=== PATIENT | female | born 2000 | race Caucasian/White ===

== ENCOUNTER 2022-10-06 21:51 | Emergency (ER) | payer OTHER ==
[2022-10-06] MEDS: ONDANSETRON ODT 4 MG TABLET TL STA ×2 (22:42→23:38)
[2022-10-06 22:52] LABS: BASOPHILS # (AUTO) 0.1 10^3/uL (0.0-0.1); BASOPHILS % (AUTO) 0.6 %; EOSINOPHILS # (AUTO) 0.1 10^3/uL (0.0-0.7); EOSINOPHILS % (AUTO) 0.9 %; HCT - HEMATOCRIT 40.2 % (37.0-47.0); HGB - HEMOGLOBIN 13.1 g/dL (12.0-16.0); LYMPHOCYTES # (AUTO) 2.5 10^3/uL (1.5-3.5); LYMPHOCYTES % (AUTO) 25.6 %; MEAN CORPUSCULAR HEMOGLOBIN 28.6 pg (27.0-31.0); MEAN CORPUSCULAR HGB CONC 32.6 g/dL (32.0-36.0); MEAN CORPUSCULAR VOLUME 87.8 fL (81.0-99.0); MEAN PLATELET VOLUME 11.1 fL (7.9-10.8); MONOCYTES # (AUTO) 0.7 10^3/uL (0.0-1.0); MONOCYTES % (AUTO) 7.4 %; NEUTROPHILS # (AUTO) 6.3 10^3/uL (1.5-6.6); NEUTROPHILS % (AUTO) 65.2 %; PLT - PLATELET COUNT 205 10^3/uL (130-450); RED BLOOD COUNT 4.58 10^6/uL (4.20-5.40); RED CELL DISTRIBUTION WIDTH 13.6 % (12.0-15.0); WHITE BLOOD COUNT 9.7 x10^3/uL (4.8-10.8)
[2022-10-06 23:04] LABS: ALBUMIN 4.7 g/dL (3.2-5.5); ALBUMIN/GLOBULIN RATIO 1.6 (1.0-2.2); BILIRUBIN,TOTAL 0.4 mg/dL (0.2-1.0); CALCIUM 9.2 mg/dL (8.5-10.3); CREATININE 0.7 mg/dL (0.4-1.0); POTASSIUM 4.1 mmol/L (3.5-5.0); TOTAL PROTEIN 7.6 g/dL (6.7-8.2)
[2022-10-06] MEDS ORDERED: AMOX/CLAV 875 MG/125 MG TABLET PO STA (23:10)
--- NOTE | 2022-10-06 23:13 | ED Physician Documentation ---
PD HPI NVD - Stated complaint Stated Complaint: VOMIT/BLOOD/EAR PX - Chief complaint Chief Complaint: Abd Pain - History obtained from History obtained from: Patient, Friend - History of Present Illness Timing - onset: Today Timing - details: Gradual onset, Waxing and waning Associated symptoms: Abdominal pain, Other (right ear pain, cough with phlem) Contributing factors: Other (has develped phlem from "ear infection"). No: Sick contact, Bad food, Recent antibiotics, Alcohol use Improved by: Vomiting Similar symptoms before: No diagnosis Recently seen: Not recently seen - Additonal information Additional information: Afshan Crawford is a 22-year-old female who has sensitivity issues and she has recently developed some phlegm that she is coughing and with this she has developed some vomiting when she vomited something that was red she was concerned about bleeding and she is come to the emergency department for evaluation. She has had some issue with abdominal cramping as well. She has had issue with her stomach for quite some time and she has previously been on omeprazole. She has a family history of ulcer. She denies current use of ibuprofen or alcohol. She is on a wait list to see the psychology associate about her stomach issues. Review of Systems Constitutional: denies: Fever Eyes: denies: Decreased vision Ears: reports: Ear pain Nose: reports: Rhinorrhea / runny nose, Congestion Throat: reports: Sore throat Cardiac: denies: Chest pain / pressure, Palpitations Respiratory: reports: Cough. denies: Dyspnea GI: reports: Nausea, Vomiting : denies: Dysuria, Frequency PD PAST MEDICAL HISTORY - Present Medications Home Medications: Ambulatory Orders Medication Instructions Recorded Confirmed Amox/Clav 875/125 [Augmentin] 1 each PO Q12H #20 tablet 10/06/22 Ondansetron Odt [Zofran] 4 mg TL Q6H PRN #10 tablet 10/06/22 - Allergies Allergies/Adverse Reactions: Allergies Allergy/AdvReac Type Severity Reaction Status Date / Time No Known Drug Allergies Allergy Verified 10/06/22 22:36 PD ED PE NORMAL - Vitals Vital signs reviewed: Yes (Normal) - General General: Alert and oriented X 3, No acute distress, Well developed/nourished - HEENT HEENT: Atraumatic, PERRL, EOMI, Pharynx benign, Other (The right TM is obscured by cerumen this is removed to reveal an erythematous TM with indistinct landmarks the left is clear) - Neck Neck: Supple, no meningeal sign, No bony TTP - Cardiac Cardiac: RRR, No murmur - Respiratory Respiratory: No respiratory distress, Clear bilaterally - Abdomen Abdomen: Normal bowel sounds, Soft, Non tender, Non distended, No organomegaly - Back Back: No CVA TTP, No spinal TTP - Derm Derm: Normal color, Warm and dry, No rash - Extremities Extremities: No deformity, No edema - Neuro Neuro: Alert and oriented X 3, language pathologist 2-12 intact, No motor deficit, No sensory deficit, Normal speech Eye Opening: Spontaneous Motor: Obeys Commands Verbal: Oriented GCS Score: 15 - Psych Psych: Normal mood, Normal affect Results - Vitals Vitals: Vital Signs - 24 hr 10/06/22 21:56 Temperature 36.7 C Heart Rate 65 Respiratory 16 Rate Blood Pressure 125/63 O2 Saturation 99 Oxygen O2 Source Room air - Labs Labs: Laboratory Tests 10/06/22 10/06/22 22:47 22:47 WBC 9.7 RBC 4.58 Hgb 13.1 Hct 40.2 MCV 87.8 MCH 28.6 MCHC 32.6 RDW 13.6 Plt Count 205 MPV 11.1 H Neut # (Auto) 6.3 Lymph # (Auto) 2.5 Gates # (Auto) 0.7 Eos # (Auto) 0.1 Baso # (Auto) 0.1 Absolute Nucleated RBC 0.00 Nucleated RBC % 0.0 Sodium 139 Potassium 4.1 Chloride 106 Carbon Dioxide 25 Anion Gap 8.0 BUN 18 Creatinine 0.7 Estimated GFR (MDRD) 107 Glucose 103 H Calcium 9.2 Total Bilirubin 0.4 AST 19 ALT 15 Alkaline Phosphatase 41 L Total Protein 7.6 Albumin 4.7 Globulin 2.9 Albumin/Globulin Ratio 1.6 Lipase 34 PD Medical Decision Making - ED course Complexity details: reviewed results, re-evaluated patient, considered differential, d/w patient, d/w family Reviewed Lab Results: We reviewed a complete blood count showing a normal white blood cell count nor mal hemoglobin hematocrit and platelets with normal indices. Chemistries were similarly unremarkable. Normal electrolytes normal kidney and liver function. BUN was 18. These benign laboratory results indicate a benign process. I do not see evidence of excessive blood loss the patient does not have elevation in her BUN to suggest she is digesting blood and she has normal blood counts she has not had any vomiting in the department and she has had stable vital signs. ED course: 22-year-old female presents to the emergency department with vomiting with concerns that she may have vomited blood. She has concerns that she may have an ulcer. She is complaining of some stomach pain and some ear pain and a cough. She states that she has some sensitivities and when she has phlegm she will frequent vomit. On examination today we found she had cerumen impaction in the right ear canal and I personally placed oil retention enema into the patient's ear and irrigated her ear with warm saline relieving the cerumen impaction and revealing evidence of otitis. She indicates to me that she has had a problem with frequent infections and we have elected to treat today. She is treated with Augmentin 875. I have recommended the patient that she take some Pepcid AC instead of omeprazole and to take this on a regular basis until her follow-up with GI. We will also provide the patient with some Zofran. Departure - Departure Disposition: 01 Home, Self Care Clinical Impression: Vomiting Qualifiers: Vomiting type: unspecified Nausea presence: with nausea Qualified Code(s): R11.2 - Nausea with vomiting, unspecified Otitis media Qualifiers: Otitis media type: suppurative Chronicity: acute Laterality: right Recurrence: recurrent Spontaneous tympanic membrane rupture: without spontaneous rupture Qualified Code(s): H66.004 - Acute suppurative otitis media without spontaneous rupture of ear drum, recurrent, right ear Condition: Stable Instructions: ED Otitis Media Acute Adult, ED Diet Vomiting Diarrhea Follow-Up: [facility] [Provider Group] Prescriptions: Amox/Clav 875/125 [Augmentin] 1 each PO Q12H #20 tablet Ondansetron Odt [Zofran] 4 mg TL Q6H PRN #10 tablet PRN Reason: Nausea / Vomiting Comments: Elizabeth, today it looks like the phlegm that you are producing from your cough is related to an ear infection and we are treating that with Augmentin. It also looks like this phlegm is causing some irritation to your stomach and causing nausea and vomiting. I have E scribed some Zofran to the [facility] along with your Augmentin. My recommendation for your stomach is to take some Pepcid AC on a regular basis until your follow-up with GI. Today we did not find evidence of blood loss.
[2022-10-06] MEDS ORDERED: ONDANSETRON ODT 4 MG Prepack 2 TL PRN (23:26)
[2022-10-06 23:28] VITALS: BP 115/78
== END 2022-10-06 23:41 | disposition home or self-care (01) ==
LOC: ED 21:51
DX: H66.004 Acute suppurative otitis media without spontaneous rupture of ear drum, recurrent, right ear (principal); R11.2 Nausea with vomiting, unspecified; H61.21 Impacted cerumen, right ear
CPT/HCPCS: 36415; 80053; 83690; 85025; 99283; 99284; A9270; Q0162

== ENCOUNTER 2022-11-14 19:50 | Emergency (ER) | payer OTHER ==
[2022-11-14 20:09] VITALS: BP 140/90
--- NOTE | 2022-11-14 20:36 | ED Physician Documentation ---
PD HPI LOWER EXT INJURY - Stated complaint Stated Complaint: R KNEE/HIP PX - Chief complaint Chief Complaint: Ext Problem - History obtained from History obtained from: Patient - Additional information Additional information: HPI from patient. Patient complains of sudden onset of right hip pain that radiates to her right knee. The pain started at approximately noon today when she went to stand up f rom a seated position.The pain is distinctly worse with movement. She has had previous and episodic right hip pain in the past related to position and movement but never this persistent nor severe; has not been evaluated in the past for these symptoms. She is able to partially weight-bear but is using a cane this evening to decrease weight-bearing on the RLE. Denies fever, swelling. Review of Systems Constitutional: reports: Reviewed and negative Musculoskeletal: reports: Joint pain, Pain with weight bearing. denies: Back pain, Extremity swelling, Joint swelling Neurologic: denies: Focal weakness, Numbness PD PAST MEDICAL HISTORY - Past Medical History Past Medical History: No - Present Medications Home Medications: Ambulatory Orders Medication Instructions Recorded Confirmed Amox/Clav 875/125 [Augmentin] 1 each PO Q12H #20 tablet 10/06/22 Ondansetron Odt [Zofran] 4 mg TL Q6H PRN #10 tablet 10/06/22 traMADol [Ultram] 50 - 100 mg PO Q6H PRN #20 tablet 11/14/22 - Allergies Allergies/Adverse Reactions: Allergies Allergy/AdvReac Type Severity Reaction Status Date / Time No Known Drug Allergies Allergy Verified 11/14/22 20:04 PD ED PE NORMAL - Vitals Vital signs reviewed: Yes - General General: Alert and oriented X 3, No acute distress, Well developed/nourished - Back Back: No CVA TTP, No spinal TTP - Derm Derm: Normal color, Warm and dry - Extremities Extremities: No deformity, No tenderness to palpate, No edema - Neuro Neuro: No motor deficit, No sensory deficit PD ED PE EXPANDED - Extremities Extremities: Limited ROM, Right hip, Right knee Results - Vitals Vitals: Oxygen O2 Source Room air - Rads (name of study) right knee xrays Relevant Findings:: Prelim report reviewed, See rad report right hip xrays Relevant Findings:: Prelim report reviewed, See rad report PD Medical Decision Making - ED course Complexity details: reviewed results, re-evaluated patient, considered differential, d/w patient ED course: Limited ROM of right hip and right knee (limited flexion of knee, extension of hip) due to pain. No bony tenderness and no swelling of the knee on my exam as well as per patient (I specifically ask her if she appreciates any knee swelling given the xray findings); lack of swelling on exam is surprising given the xray interpretation of moderate effusion (per radiology). That she reports recurrent joint pains , particularly (though not limited to) of the right hip, combined with the xray findings, raises concern for possible underlying/predisposing pathology which (as noted in radiologists readings of the xrays) might benefit from further study such as MRI. Patient indicates to me that she already was planning on talking to her doctor about her recurrent joint pains which have been occurring with minimal provocation. Results d/w patient. Analgesia discussed; she indicates she has had inadequate relief with ibuprofen taken earlier this evening. Options for analgesia d/w patient, given tramadol in ED and rx for same. Return precautions discussed. I am prescribing a short course of short-acting opioid pain medication for this patient. I have reviewed the patients [employer]AGE [employer]ACHINE and no concerning findings were noted. I have discussed that the opioids are for short term therapy only, and will not be refilled from the ED. Departure - Departure Disposition: 01 Home, Self Care Clinical Impression: Lower extremity pain, right Condition: Good Instructions: ED Sprain Hip, ED Effusion Knee, ED Sprain Knee Follow-Up: HOPE ROBISON MD [Primary Care Provider] - Prescriptions: traMADol [Ultram] 50 - 100 mg PO Q6H PRN #20 tablet PRN Reason: Pain >8 Comments: There were mild abnormalities noted on the x-ray; these abnormalities would not explain your acute pain, but might be contributory factor. Specifically, the right hip joint space is noticeably narrow. Additionally, there is a moderate amount of fluid in the right knee. Follow up with your primary care provider, next available appointment. Further testing, such as MRI, might be helpful (at the discretion of your doctor). I have submitted a prescription for tramadol (mild narcotic/opiate pain medication) to the [facility] pharmacy in [place]. I am prescribing a short course of narcotic pain medication for you. These are potentially dangerous and addictive medications that should be used carefully. These medications may constipate you. Take an qjrc-oob-tptmdjq stool softener (docusate) twice daily with plenty of water while taking these medications. If you go 24 hours without a bowel movement, take podr-vve-vsvneue miralax, per package instructions. Do not drink or drive while taking these medications. If you received narcotic or sedating medications while in the emergency department, do not drive for 24 hours. Store this medication in a safe, secure place and out of reach of children. It is a violation of federal law to give or sell this medication to another person or to use in a manner other than prescribed. The ED will not refill narcotic prescriptions, including prescriptions lost or stolen. To dispose of unwanted medications: 1. [facility] at [address] in [place] has a medication drop box. They accept prescription medications (in pill form) Thursday through Thursday 9:00 a.m. to 5:00 p.m. 2. The [facility] accepts prescription medications (in pill form only) for disposal year round. Call for more information. 3. Contact the [facility] for the next [facility] sponsored prescription drug collection event. , [phone], or [phone]; I am prescribing a short course of narcotic pain medication for you. These are potentially dangerous and addictive medications that should be used carefully. These medications may constipate you. Take an enzd-zfe-gtqzgdo stool softener (docusate) twice daily with plenty of water while taking these medications. If you go 24 hours without a bowel movement, take mkxq-clo-cxnzkay miralax, per package instructions. Do not drink or drive while taking these medications. If you received narcotic or sedating medications while in the emergency department, do not drive for 24 hours. Store this medication in a safe, secure place and out of reach of children. It is a violation of federal law to give or sell this medication to another person or to use in a manner other than prescribed. The ED will not refill narcotic prescriptions, including prescriptions lost or stolen. To dispose of unwanted medications: 1. [facility] at [address] in [place] has a medication drop box. They accept prescription medications (in pill form) Thursday through Thursday 9:00 a.m. to 5:00 p.m. 2. The [facility] accepts prescription medications (in pill form only) for disposal year round. Call for more information. 3. Contact the [facility] for the next [facility] sponsored prescription drug collection event. , [phone], or [phone]; Forms: PCP List Discharge Date/Time: 11/14/22 21:14
--- NOTE | 2022-11-14 20:45 | XRAY Report ---
PROCEDURE: Knee 4 View RT INDICATIONS: Trauma TECHNIQUE: 4 views of the right knee(s) were acquired. COMPARISON: Correlation is made with the accompanying hip plain films FINDINGS: Bones: No fractures or dislocations. No suspicious bony lesions. Soft tissues: There is a moderate knee joint effusion. No suspicious soft tissue calcifications or m asses. IMPRESSION: Moderate joint effusion, without a eugene acute bony abnormality on these images. If it would be helpful for clinical management decision making, please consider a dedicated, schedule d knee MRI for further evaluation (assuming that there is no contraindication). Reviewed by: Domingo Russell MD on 11/14/2022 7:43 PM DANIELLE Approved by: Domingo Russell MD on 11/14/2022 7:43 PM DANIELLE Station ID: [id number]
--- NOTE | 2022-11-14 20:46 | XRAY Report ---
PROCEDURE: Hip w/Pelvis 2-3V RT INDICATIONS: Trauma, pain, please evaluate for fracture TECHNIQUE: AP pelvis with lateral view(s) of the right hip(s). COMPARISON: Correlation is made with the accompanying knee plain films. FINDINGS: Bones: No fractures or dislocations. No suspicious bony lesions. Mild bilateral hip joint space narrowing can be seen, right worse than left. Soft tissues: No suspicious soft tissue calcifications or masses. IMPRESSION: No eugene acute bony abnormality is seen. Bilateral joint space narrowing can be seen, right worse than left. If it would be helpful for clinical management decision making, please consider a dedicated hip MRI f or further evaluation (assuming that there is no contraindication). This should be performed accordi ng to the arthrogram protocol, if there is strong clinical concern for a labral abnormality. Reviewed by: Domingo Russell MD on 11/14/2022 7:44 PM DANIELLE Approved by: Domingo Russell MD on 11/14/2022 7:44 PM DANIELLE Station ID: [id number]
[2022-11-14] MEDS ORDERED: traMADol 50 MG TABLET PO STA (20:54)
== END 2022-11-14 21:14 | disposition home or self-care (01) ==
LOC: ED 19:50
DX: M79.604 Pain in right leg (principal)
CPT/HCPCS: 73502; 73564; 99283; A9270

== ENCOUNTER 2022-11-18 10:48 | Outpatient (CLI) | payer OTHER ==
--- NOTE | 2022-11-18 10:15 | CARDIAC PROCEDURE NOTE ---
Stress Test Report Service Date: 11/18/22 Service Time: 11:00 Ordering Provider: Vinnie Quezada MD Indication for Test: Formally assess response to exercise in a patient with reported exertional tachycardia, lightheadedness and chest discomfort. Significant Medical History: Elizabeth is referred for an ETT today, to formally characterize her response to exercise in the setting of suspected postural orthostatic tachycardia syndrome (POTS). She has had chronic GI tract issues as well as anxiety and possible depression. She reports that for about the past 2 to 3 years she has had symptoms suspected to be due to POTS, which her younger sister is also experiencing. She reports an increase in heart rate upon standing or upon initiating exercise, such as walking up stairs. Exercise can also be associated with lightheadedness and chest discomfort. She reports that resting heart rates are typically near 100 and may increase to the 120s simply with standing. When symptoms are especially troublesome she may experience near syncope and she has fallen on a few occasions with very brief loss of consciousness. She had a series of infectious illnesses that preceded her symptom complex onset, though none were diagnosed as being due to COVID. She had also been trialed on nightly prazosin at low-dose, to address possible PTSD. She believes that the combination of an infectious illness and trial with prazosin may have contributed to her current symptom complex, which did improve somewhat with discontinuation of the prazosin. The current testing is recommended as part of an evaluation that will include Cardiology consultation by Dr. Quezada. Cardiac Risk Factors: Negative for history of hypertension, diabetes, hyperlipidemia, family history of coronary artery disease and tobacco smoking. Type of Stress Test: Exercise Treadmill Test (ETT) Procedure: -Exercise Treadmill Test- After signing informed consent, the patient performed treadmill exercise using a Rl protocol. The patient exercised for 8 minutes 50 seconds and achieved a peak heart rate of 176 (88 percent predicted maximum heart rate for age), and an estimated workload of 10.2 METS. The test was terminated due to fatigue/shortness of breath and lightheadedness. Resting heart rate: Supine 80, Standing 89 Peak heart rate: 176 Normal response to standing and normal graded increase with exercise. Resting BP: Supine 119/65, Standing 143/67 Peak BP: 220/52 at peak exercise, with marked increase of DBP in Recovery to 238/130; BP was normal at rest and in response to standing, with robust exertional increase in systolic BP and abrupt increase in diastolic BP in Recovery followed by normalization (see below). Rhythm during exercise: Sinus rhythm throughout without ectopy. Symptoms: Lightheadedness became limiting in late stage 3. EKG at rest showed normal sinus rhythm, normal in all aspects. EKG at peak stress showed no ischemia by EKG criteria. In Recovery heart rate decreased but remained elevated above baseline (105 at 9:00) while BP remained elevated (238/130 at 5:00 and 7:00) prior to abrupt normalization (124/68 at 9:00). No imaging was ordered with this stress test. IBobby MD, was present throughout this treadmill stress study and supervised it in its entirety. Summary: 1) Moderately decreased exercise tolerance as evidenced by MARISSA of 18%. 2) Normal resting EKG. 3) Adequate level of exercise was achieved on this treadmill stress test. 4) Complex BP response to exercise, as elaborated above; seemingly NOT consistent with POTS diagnosis. 5) No ischemic changes by EKG criteria were seen at peak stress. 6) No imaging was ordered with this test. Conclusions and Recommendations: 1) Although Elizabeth experienced some of her typical symptoms (ie lightheadedness and awareness of elevated heart rate) with exertion she did not have hemodynamic response(s) today that would be suggestive of POTS. She had no arrhythmia nor EKG evidence of ischemia. 2) It is conceivable that the apparent increase in diastolic BP during Recovery was artifactual, as her last measured BP was normal (124/68 at 9:00) following 2 markedly elevated readings and then re-adjustment of the cuff's position on her arm.
== END 2022-11-18 10:49 | disposition home or self-care (01) ==
LOC: DI 10:48
PROVIDERS: ATTEND Internal Medicine Cardiovascular Disease
DX: R00.0 Tachycardia, unspecified (principal); F41.9 Anxiety disorder, unspecified
CPT/HCPCS: 93017

== ENCOUNTER 2022-12-16 23:38 | Outpatient (CLI) | payer OTHER | END 2022-12-16 23:59 | disposition other institution (70) | LOC: EMS 23:38 | DX: Z04.3 Encounter for examination and observation following other accident (principal); M25.572 Pain in left ankle and joints of left foot; R51.9 Headache, unspecified; R55 Syncope and collapse ==

== ENCOUNTER 2022-12-28 01:25 | Emergency (ER) | payer OTHER ==
[2022-12-28 01:45] VITALS: O2SAT 99
--- NOTE | 2022-12-28 02:15 | ED Physician Documentation ---
PD HPI ABD PAIN - Stated complaint Stated Complaint: NAUSEA,VOMITING/ABD PX - Chief complaint Chief Complaint: Abd Pain - History obtained from History obtained from: Patient - Additional information Additional information: 22-year-old female with anxiety, depression, reported history of POTS disease presents for nausea and vomiting. Patient states that she has had severe nausea and vomiting for over a month. She was seen at [facility] 2 days ago where she was given numerous antiemetics and discharged with the diagnosis of gastritis. She said she is unable to tolerate anything by mouth including liquids and is here today for reevaluation. Reports periumbilical pain that is been present for over 1 month. Of note, this is patient's ninth ER visit since September of this year. Has been seen several times for vomiting. Patient states that she uses THC dabs throughout the day. GI referral pending for February 2023 Review of Systems Constitutional: denies: Fever, Chills GI: reports: Abdominal Pain, Nausea, Vomiting. denies: Constipation, Diarrhea : denies: Dysuria, Frequency, Hesitancy Musculoskeletal: denies: Neck pain, Back pain, Extremity pain Neurologic: denies: Generalized weakness, Focal weakness, Numbness PD PAST MEDICAL HISTORY - Present Medications Home Medications: Ambulatory Orders Medication Instructions Recorded Confirmed Aripiprazole [Abilify] 2 mg PO DAILY 12/28/22 12/28/22 Escitalopram Oxalate 20 mg PO DAILY 12/28/22 12/28/22 Ondansetron HCl 4 mg PO Q6HR PRN 12/28/22 12/28/22 hydrOXYzine HCL [Hydroxyzine HCl] 10 mg PO HS 12/28/22 12/28/22 - Allergies Allergies/Adverse Reactions: Allergies Allergy/AdvReac Type Severity Reaction Status Date / Time No Known Drug Allergies Allergy Verified 12/28/22 01:42 PD ED PE NORMAL - Vitals Vital signs reviewed: Yes - General General: Alert and oriented X 3, No acute distress, Well developed/nourished, Other (obese) - HEENT HEENT: Atraumatic, Moist mucous membranes - Neck Neck: Supple, no meningeal sign - Cardiac Cardiac: RRR, No murmur, Strong equal pulses - Respiratory Respiratory: No respiratory distress, Clear bilaterally - Abdomen Abdomen: Soft, Non tender, Non distended - Derm Derm: Normal color, Warm and dry, No rash - Extremities Extremities: No deformity, No tenderness to palpate, Normal ROM s pain, No edema - Neuro Neuro: Alert and oriented X 3, drop worker 2-12 intact, No motor deficit, Normal speech - Psych Psych: Normal mood, Normal affect Results - Vitals Vitals: Vital Signs - 24 hr 12/28/22 12/28/22 01:37 03:02 Temperature 36.7 C Heart Rate 71 61 Respiratory 16 16 Rate Blood Pressure 146/73 H 108/64 O2 Saturation 99 99 Oxygen O2 Source Room air - Labs Labs: Laboratory Tests 12/28/22 12/28/22 02:22 02:22 WBC 7.5 RBC 4.28 Hgb 12.3 Hct 38.0 MCV 88.8 MCH 28.7 MCHC 32.4 RDW 13.2 Plt Count 187 MPV 10.6 Neut # (Auto) 4.0 Lymph # (Auto) 2.5 [place] # (Auto) 0.7 Eos # (Auto) 0.2 Baso # (Auto) 0.1 Absolute Nucleated RBC 0.00 Nucleated RBC % 0.0 Sodium 138 Potassium 3.9 Chloride 105 Carbon Dioxide 27 Anion Gap 6.0 BUN 14 Creatinine 0.8 Estimated GFR (MDRD) 91 Glucose 97 Calcium 9.4 Total Bilirubin 0.2 AST 13 ALT 11 Alkaline Phosphatase 41 L Total Protein 6.8 Albumin 4.5 Globulin 2.3 Albumin/Globulin Ratio 2.0 Lipase 82 PD Medical Decision Making - ED course Complexity details: reviewed old records, reviewed results, re-evaluated patient, considered differential, d/w patient, d/w family ED course: 1 month of persistent nausea and vomiting. Reporting negative work-up 2 days prior. Given patient's numerous ER visits and reported frequent THC use patient likely has at least some component of cannabinoid hyperemesis. Abdomen is soft, there is no reproducible tenderness to light or deep palpation, no indication for CT imaging at this time. Laboratory work is reviewed, absolutely no electrolyte derangements despite patient's reported 1 month of symptoms. She was given droperidol and IV fluids with improvement in symptoms. Patient was counseled on the results of her labs. I emphasized the need for patient to keep her GI appointment in February as already scheduled. I counseled the patient that THC is likely contributing to her symptoms and it would be very helpful for her upcoming GI appointment if she stopped using THC products. Patient was recently discharged with antiemetics from her hospital visit 2 days ago. No new medications prescribed at this visit. 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 Your laboratory work today is completely normal, your electrolytes are all within normal limits. I highly recommend that you cease all THC products as this can lead to worsening of your nausea and vomiting. Please follow-up with gastroenterology as previously scheduled. Forms: PCP List Discharge Date/Time: 12/28/22 03:50
[2022-12-28 02:27] LABS: BASOPHILS # (AUTO) 0.1 10^3/uL (0.0-0.1); BASOPHILS % (AUTO) 1.1 %; EOSINOPHILS # (AUTO) 0.2 10^3/uL (0.0-0.7); EOSINOPHILS % (AUTO) 3.1 %; HGB - HEMOGLOBIN 12.3 g/dL (12.0-16.0); LYMPHOCYTES # (AUTO) 2.5 10^3/uL (1.5-3.5); LYMPHOCYTES % (AUTO) 33.7 %; MEAN CORPUSCULAR HEMOGLOBIN 28.7 pg (27.0-31.0); MEAN CORPUSCULAR HGB CONC 32.4 g/dL (32.0-36.0); MEAN CORPUSCULAR VOLUME 88.8 fL (81.0-99.0); MEAN PLATELET VOLUME 10.6 fL (7.9-10.8); MONOCYTES # (AUTO) 0.7 10^3/uL (0.0-1.0); MONOCYTES % (AUTO) 9.1 %; NEUTROPHILS % (AUTO) 52.7 %; PLT - PLATELET COUNT 187 10^3/uL (130-450); RED BLOOD COUNT 4.28 10^6/uL (4.20-5.40); RED CELL DISTRIBUTION WIDTH 13.2 % (12.0-15.0); WHITE BLOOD COUNT 7.5 x10^3/uL (4.8-10.8)
[2022-12-28] MEDS: SODIUM CHLORIDE 0.9% 1,000 ML IV STA (02:41)
[2022-12-28] MEDS: DROPERIDOL 5 MG/2 ML VIAL IVP STA (02:41)
[2022-12-28 02:44] LABS: ALBUMIN 4.5 g/dL (3.2-5.5); BILIRUBIN,TOTAL 0.2 mg/dL (0.2-1.0); CALCIUM 9.4 mg/dL (8.5-10.3); CREATININE 0.8 mg/dL (0.6-1.3); POTASSIUM 3.9 mmol/L (3.5-4.5); TOTAL PROTEIN 6.8 g/dL (6.4-8.9)
[2022-12-28 03:10] VITALS: BP 108/64
== END 2022-12-28 03:50 | disposition home or self-care (01) ==
LOC: ED 01:25
DX: R11.2 Nausea with vomiting, unspecified (principal); F12.90 Cannabis use, unspecified, uncomplicated; E66.9 Obesity, unspecified; Z79.899 Other long term (current) drug therapy
CPT/HCPCS: 36415; 80053; 83690; 85025; 93005; 96374; 99283

== ENCOUNTER 2023-01-02 14:54 | Emergency (ER) | payer OTHER ==
[2023-01-02] MEDS ORDERED: DROPERIDOL 5 MG/2 ML VIAL IVP STA (15:30)
[2023-01-02 15:38] LABS: BASOPHILS # (AUTO) 0.1 10^3/uL (0.0-0.1); BASOPHILS % (AUTO) 0.8 %; EOSINOPHILS # (AUTO) 0.2 10^3/uL (0.0-0.7); EOSINOPHILS % (AUTO) 2.3 %; LYMPHOCYTES # (AUTO) 2.1 10^3/uL (1.5-3.5); LYMPHOCYTES % (AUTO) 28.2 %; MEAN CORPUSCULAR HGB CONC 33.3 g/dL (32.0-36.0); MEAN CORPUSCULAR VOLUME 86.9 fL (81.0-99.0); MEAN PLATELET VOLUME 10.7 fL (7.9-10.8); MONOCYTES # (AUTO) 0.6 10^3/uL (0.0-1.0); MONOCYTES % (AUTO) 7.8 %; NEUTROPHILS # (AUTO) 4.5 10^3/uL (1.5-6.6); NEUTROPHILS % (AUTO) 60.5 %; PLT - PLATELET COUNT 229 10^3/uL (130-450); RED BLOOD COUNT 4.49 10^6/uL (4.20-5.40); RED CELL DISTRIBUTION WIDTH 13.3 % (12.0-15.0); WHITE BLOOD COUNT 7.5 x10^3/uL (4.8-10.8)
--- NOTE | 2023-01-02 15:44 | ED Physician Documentation ---
History of Present Illness - Stated complaint Stated Complaint: N/V/ABD PX - Chief complaint Chief Complaint: Abd Pain - Additonal information Additional information: 22-year-old female returns to the emergency department for evaluation of un controlled nausea and vomiting, upper abdominal pain and some coffee-ground emesis. She reports that she has been vomiting for about 6 weeks. Up until a week ago she was dabbing with THC quite frequently however she has not used THC for 1 week. Since November 19 this is the patient's 7th ED visit for uncontrolled nausea and vomiting. Reports she is taking Protonix daily. Using Phenergan, Reglan and Zofran without relief. States she has been unable to keep anything down and now her abdomen hurts. No melena or hematochezia. Patient reports that she typically receives antiemetics and fluids in the ER before being discharged home only for the symptoms to return several hours later. She has not had any advanced imaging. Review of Systems Constitutional: denies: Fever Throat: reports: Reviewed and negative Cardiac: reports: Reviewed and negative Respiratory: reports: Reviewed and negative GI: reports: Abdominal Pain, Nausea, Vomiting, Hematemesis. denies: Bloody / black stool : reports: Reviewed and negative Skin: denies: Rash, Lesions Musculoskeletal: reports: Reviewed and negative Neurologic: reports: Reviewed and negative PD PAST MEDICAL HISTORY - Past Medical History Past Medical History: Yes Psych: Depression, Anxiety, Post traumatic stress disorder, Obsessive compulsive disorder - Past Surgical History Past Surgical History: No - Present Medications Home Medications: Ambulatory Orders Medication Instructions Recorded Confirmed Aripiprazole [Abilify] 2 mg PO DAILY 12/28/22 01/02/23 Escitalopram Oxalate 20 mg PO DAILY 12/28/22 01/02/23 Ondansetron HCl 4 mg PO Q6HR PRN 12/28/22 01/02/23 hydrOXYzine HCL [Hydroxyzine HCl] 10 mg PO HS 12/28/22 01/02/23 Metoclopramide [Reglan] 10 mg PO Q8H PRN #20 tablet 01/02/23 Pantoprazole Sodium 40 mg PO DAILY 01/02/23 01/02/23 - Allergies Allergies/Adverse Reactions: Allergies Allergy/AdvReac Type Severity Reaction Status Date / Time No Known Drug Allergies Allergy Verified 12/28/22 01:42 - Social History Does the pt smoke?: No Smoking Status: Never smoker Does the pt drink ETOH?: No - Immunizations Immunizations are current?: Yes PD ED PE NORMAL - General General: Alert and oriented X 3, No acute distress - HEENT HEENT: PERRL - Cardiac Cardiac: RRR, No murmur - Respiratory Respiratory: No respiratory distress, Clear bilaterally - Abdomen Abdomen: Normal bowel sounds, Soft. No: Non tender (epigastric tenderness withotu guarding or rebound) - Back Back: No CVA TTP - Derm Derm: Normal color, Warm and dry, No rash - Extremities Extremities: No deformity - Neuro Neuro: Alert and oriented X 3 Eye Opening: Spontaneous Motor: Obeys Commands Verbal: Oriented GCS Score: 15 Results - Vitals Vitals: Vital Signs - 24 hr 01/02/23 01/02/23 14:56 17:02 Temperature 36.7 C Heart Rate 83 70 Respiratory 20 16 Rate Blood Pressure 135/83 H 100/51 L O2 Saturation 99 96 Oxygen O2 Source Room air - Labs Labs: Laboratory Tests 01/02/23 01/02/23 01/02/23 15:30 15:30 15:30 WBC 7.5 RBC 4.49 Hgb 13.0 Hct 39.0 MCV 86.9 MCH 29.0 MCHC 33.3 RDW 13.3 Plt Count 229 MPV 10.7 Neut # (Auto) 4.5 Lymph # (Auto) 2.1 [place] # (Auto) 0.6 Eos # (Auto) 0.2 Baso # (Auto) 0.1 Absolute Nucleated RBC 0.00 Nucleated RBC % 0.0 Sodium 137 Potassium 4.2 Chloride 104 Carbon Dioxide 26 Anion Gap 7.0 BUN 13 Creatinine 0.8 Estimated GFR (MDRD) 91 Glucose 93 Calcium 9.1 Total Bilirubin 0.7 AST 29 ALT 15 Alkaline Phosphatase 43 Total Protein 7.8 Albumin 4.7 Globulin 3.1 Albumin/Globulin Ratio 1.5 Lipase 33 Serum HCG, Qual NEGATIVE Urine Color Urine Clarity Urine pH Ur Specific [place] Urine Protein Urine Glucose (UA) Urine Ketones Urine Occult Blood Urine Nitrite Urine Bilirubin Urine Urobilinogen Ur Leukocyte Esterase Ur Microscopic Review Urine Culture Comments Urine HCG, Qual 01/02/23 16:42 WBC RBC Hgb Hct MCV MCH MCHC RDW Plt Count MPV Neut # (Auto) Lymph # (Auto) [place] # (Auto) Eos # (Auto) Baso # (Auto) Absolute Nucleated RBC Nucleated RBC % Sodium Potassium Chloride Carbon Dioxide Anion Gap BUN Creatinine Estimated GFR (MDRD) Glucose Calcium Total Bilirubin AST ALT Alkaline Phosphatase Total Protein Albumin Globulin Albumin/Globulin Ratio Lipase Serum HCG, Qual Urine Color YELLOW Urine Clarity CLEAR Urine pH 7.0 Ur Specific [place] 1.020 Urine Protein NEGATIVE Urine Glucose (UA) NEGATIVE Urine Ketones NEGATIVE Urine Occult Blood NEGATIVE Urine Nitrite NEGATIVE Urine Bilirubin NEGATIVE Urine Urobilinogen 0.2 (NORMAL) Ur Leukocyte Esterase NEGATIVE Ur Microscopic Review NOT INDICATED Urine Culture Comments NOT INDICATED Urine HCG, Qual NEGATIVE PD Medical Decision Making - ED course Complexity details: reviewed results, re-evaluated patient, d/w patient ED course: 22-year-old female presents emergency department for evaluation of 6 weeks nausea and vomiting. This is her seventh emergency department visit since November 19 for similar symptoms. Previous ED visits have included concerned about cannabis hyperemesis. Patient reported that she dabbed THC quite a bit but has not used for about 1 week since learning of this possible syndrome. Despite using Reglan, Compazine and Zofran at home she continues to have frequent vomiting throughout the day and now endorsing upper abdominal pain. She did report some coffee-ground emesis but no melena or hematochezia. Was seen in this ED for similar 2 days ago. Today in the emergency department she is alert well-appearing. Abdominal exam revealed mild epigastric tenderness without guarding or rebound. Her vital signs were without worrisome abnormalities including fever, tachycardia or hypotension. We did obtain CBC, electrolytes found no acute worrisome abnormalities leukocytosis or electrolyte derangement. She is not . Patient was given a liter of IV fluids as well as 2-1/2 mg of Inapsine. On reevaluation the patient states that she is feeling better and is now tolerating 7-Up and crackers. I had plan to obtain CT imaging of her abdomen as she has not had any imaging with the 7 ED visits but unfortunately at this time our CT scanner is down. However it should be noted that with a very benign abdominal exam and unremarkable labs is unlikely that CT imaging would prove beneficial or diagnost ic in the setting at this time. I rediscussed the patient's presentation and her labs with her. She states that she is feeling better and feels that she can go home. Historically she says the Reglan has helped the most with her symptoms and is requesting a new prescription for this. We discussed frequent sips of clear liquids including the brat diet. She is scheduled to see GI in late February which she is intent on keeping. Usual emergent return precautions worsening symptoms were discussed. Departure - Departure Disposition: 01 Home, Self Care Clinical Impression: Nausea and vomiting Qualifiers: Vomiting type: unspecified Qualified Code(s): R11.2 - Nausea with vomiting, unspecified Condition: Stable Prescriptions: Metoclopramide [Reglan] 10 mg PO Q8H PRN #20 tablet PRN Reason: Nausea / Vomiting Comments: You are seen today in the emergency department for uncontrolled nausea and vomiting. You have had this persistent problem now since early November. Please do not miss the appointment that you are scheduled with for GI. In fact it may benefit you to be seen sooner and you could asked to be placed on a cancellation list. Your labs today were entirely normal. As discussed there is a possibility that you have cannabis hyperemesis. This can take several weeks to resolve. Because you found the most benefit from the use of Reglan I am sending a new prescription of this to [facility]. I recommend that you use it 2-3 times a day. Frequent sips of clear liquids followed by simple brat diet should be beneficial. If at any point you develop worsening symptoms, have fevers, have bright red bilious vomiting, black or bloody stools it is important that you return immediately to the ER. Forms: PCP List
[2023-01-02 16:03] LABS: ALBUMIN 4.7 g/dL (3.2-5.5); ALBUMIN/GLOBULIN RATIO 1.5 (1.0-2.2); BILIRUBIN,TOTAL 0.7 mg/dL (0.2-1.0); CALCIUM 9.1 mg/dL (8.5-10.3); CREATININE 0.8 mg/dL (0.4-1.0); POTASSIUM 4.2 mmol/L (3.5-5.0); TOTAL PROTEIN 7.8 g/dL (6.7-8.2)
[2023-01-02 16:42] LABS: HCG,QUALITATIVE BLOOD NEGATIVE
[2023-01-02 16:54] LABS: BILIRUBIN,URINE NEGATIVE (NEGATIVE); GLUCOSE, URINE (UA) NEGATIVE (NEGATIVE); KETONES,URINE (UA) NEGATIVE (NEGATIVE); LEUKOCYTE ESTERASE, URINE NEGATIVE (NEGATIVE); NITRITE,URINE NEGATIVE (NEGATIVE); OCCULT BLOOD,URINE NEGATIVE (NEGATIVE); PROTEIN,URINE NEGATIVE (NEGATIVE); UROBILINOGEN,URINE 0.2 (NORMAL) E.U./dL (NORMAL)
[2023-01-02 16:56] LABS: CLARITY,URINE CLEAR (CLEAR); HCG UR QUAL NEGATIVE
[2023-01-02 18:06] VITALS: BP 112/71; O2SAT 100
== END 2023-01-02 18:06 | disposition home or self-care (01) ==
LOC: ED 14:54
DX: R11.2 Nausea with vomiting, unspecified (principal)
CPT/HCPCS: 36415; 80053; 81001; 81003; 81025; 83690; 84703; 85025; 87086; 96374; 99284